=== PATIENT | female | born 1950 | race Caucasian/White ===

== ENCOUNTER → 2016-11-05 08:28 | Outpatient (CLI) | payer MEDICARE, OTHER ==
[2014-05-26 14:28] VITALS: BMI 34.0
[~2016-11-05 08:28] MED LIST: ADVAIR 100/501 DISK INH; AEROBID-M AEROSO7 GM INH; ARTHROTEC EC 71 EACH PO; CALCIUM 600+D T1 TA1 PO; DEXILANT60 MG PO; EVISTA60 MG PO; LEXAPRO10 MG PO; MAXZIDE-25 MG T1 TAB PO; PEPCID40 MG PO; POTASSIUM99 M1 PO; SINGULAIR10 MG PO; ULTRAM50 MG PO; VENTOLIN HFA18 GM INH; VITAMIN D250000 UNIT PO; VITAMIN D31000 UNIT PO; VOLTAREN100 GM TP; ZETIA10 MG PO; [UNRECOGNIZED DRUG - REMARK]
[2016-11-05 10:00] LABS: ALBUMIN 4.1 g/dL (3.4-5.0); BILIRUBIN - DIRECT 0.14 mg/dL (0.00-0.30); BILIRUBIN - INDIRECT 0.46 mg/dL (0.00-1.00); BILIRUBIN - TOTAL 0.6 mg/dL (0.2-1.3); PROTEIN - SERUM 6.8 g/dL (6.4-8.2)
== END | disposition home or self-care (01) ==
LOC: D.LAB 10-26 08:30 → D.US 10-26 08:30
PROVIDERS: Internal Medicine Gastroenterology
DX: K76.0 Fatty (change of) liver, not elsewhere classified (principal)

== ENCOUNTER → 2017-05-06 08:22 | Outpatient (CLI) | payer MEDICARE, OTHER ==
[2014-05-26 14:28] VITALS: BMI 34.0
[2017-05-06 09:27] LABS: ALBUMIN 3.5 g/dL (3.4-5.0); BILIRUBIN - DIRECT 0.12 mg/dL (0.00-0.30); BILIRUBIN - INDIRECT 0.37 mg/dL (0.00-1.00); BILIRUBIN - TOTAL 0.49 mg/dL (0.2-1.3); PROTEIN - SERUM 6.7 g/dL (6.4-8.2)
== END | disposition home or self-care (01) ==
LOC: D.US 08:22
PROVIDERS: Internal Medicine Gastroenterology
DX: K76.0 Fatty (change of) liver, not elsewhere classified (principal)

== ENCOUNTER → 2017-07-09 10:18 | Outpatient (CLI) | payer MEDICARE, OTHER ==
[2014-05-26 14:28] VITALS: BMI 34.0
== END | disposition home or self-care (01) ==
LOC: D.MAMMO 10:18
DX: Z12.31 Encounter for screening mammogram for malignant neoplasm of breast (principal)

== ENCOUNTER → 2017-11-06 08:47 | Outpatient (CLI) | payer MEDICARE, OTHER ==
[2014-05-26 14:28] VITALS: BMI 34.0
[2017-11-06 10:31] LABS: ALBUMIN 3.9 g/dL (3.4-5.0); BILIRUBIN - DIRECT 0.12 mg/dL (0.00-0.30); BILIRUBIN - INDIRECT 0.48 mg/dL (0.00-1.00); BILIRUBIN - TOTAL 0.6 mg/dL (0.2-1.3); PROTEIN - SERUM 6.8 g/dL (6.4-8.2)
== END | disposition home or self-care (01) ==
LOC: D.US 08:47
PROVIDERS: Internal Medicine Gastroenterology
DX: K76.0 Fatty (change of) liver, not elsewhere classified (principal)

== ENCOUNTER → 2017-11-14 07:29 | Outpatient (CLI) | payer MEDICARE, OTHER ==
[2014-05-26 14:28] VITALS: BMI 34.0
== END | disposition home or self-care (01) ==
LOC: D.MRI 07:29
DX: K76.9 Liver disease, unspecified (principal)

== ENCOUNTER → 2018-04-30 08:03 | Outpatient (CLI) | payer MEDICARE, OTHER ==
[2014-05-26 14:28] VITALS: BMI 34.0
[2018-04-30 09:43] LABS: BILIRUBIN - DIRECT 0.16 mg/dL (0.00-0.30); BILIRUBIN - INDIRECT 0.66 mg/dL (0.00-1.00); BILIRUBIN - TOTAL 0.82 mg/dL (0.2-1.3); PROTEIN - SERUM 7.6 g/dL (6.4-8.2)
== END | disposition home or self-care (01) ==
LOC: D.US 08:00
PROVIDERS: Internal Medicine Gastroenterology
DX: K76.0 Fatty (change of) liver, not elsewhere classified (principal)

== ENCOUNTER → 2018-07-09 11:57 | Outpatient (CLI) | payer MEDICARE, OTHER ==
[2014-05-26 14:28] VITALS: BMI 34.0
[2018-07-10 15:24] LABS: HEPATITIS C ANTIBODY <0.1 (0.0-0.9)
== END | disposition home or self-care (01) ==
LOC: D.LAB 11:57
PROVIDERS: Internal Medicine Gastroenterology
DX: K76.0 Fatty (change of) liver, not elsewhere classified (principal); K21.9 Gastro-esophageal reflux disease without esophagitis; K58.0 Irritable bowel syndrome with diarrhea; R10.9 Unspecified abdominal pain

== ENCOUNTER → 2018-11-03 09:02 | Outpatient (CLI) | payer MEDICARE, OTHER ==
[2014-05-26 14:28] VITALS: BMI 34.0
[2018-11-03 10:27] LABS: ALBUMIN 3.7 g/dL (3.4-5.0); BILIRUBIN - DIRECT 0.14 mg/dL (0.00-0.30); BILIRUBIN - INDIRECT 0.48 mg/dL (0.00-1.00); BILIRUBIN - TOTAL 0.62 mg/dL (0.2-1.3); PROTEIN - SERUM 6.8 g/dL (6.4-8.2)
== END | disposition home or self-care (01) ==
LOC: D.US 09:00
PROVIDERS: Internal Medicine Gastroenterology
DX: K76.0 Fatty (change of) liver, not elsewhere classified (principal)

== ENCOUNTER 2019-03-26 19:00 | Outpatient (CLI) | payer MEDICARE, OTHER ==
[2014-05-26 14:28] VITALS: BMI 34.0
== END 2019-03-26 23:59 | disposition home or self-care (01) ==
LOC: D.MAMMO 19:00
PROVIDERS: ATTEND Family Medicine
DX: Z12.31 Encounter for screening mammogram for malignant neoplasm of breast (principal)

== ENCOUNTER → 2019-04-06 07:41 | Outpatient (CLI) | payer MEDICARE, OTHER ==
[2014-05-26 14:28] VITALS: BMI 34.0
[2019-04-06 08:37] LABS: BILIRUBIN - DIRECT 0.19 mg/dL (0.00-0.30); BILIRUBIN - INDIRECT 0.69 mg/dL (0.00-1.00); BILIRUBIN - TOTAL 0.88 mg/dL (0.2-1.3); PROTEIN - SERUM 7.1 g/dL (6.4-8.2)
== END | disposition home or self-care (01) ==
LOC: D.US 07:41
PROVIDERS: ATTEND Internal Medicine Gastroenterology
DX: K76.0 Fatty (change of) liver, not elsewhere classified (principal)

== ENCOUNTER → 2019-10-19 07:31 | Outpatient (CLI) | payer MEDICARE, OTHER ==
[2014-05-26 14:28] VITALS: BMI 34.0
[2019-10-19 08:34] LABS: ALBUMIN 4.1 g/dL (3.4-5.0); BILIRUBIN - DIRECT 0.11 mg/dL (0.00-0.30); BILIRUBIN - INDIRECT 0.3 mg/dL (0.00-1.00); BILIRUBIN - TOTAL 0.41 mg/dL (0.2-1.3); PROTEIN - SERUM 7.6 g/dL (6.4-8.2)
== END | disposition home or self-care (01) ==
LOC: D.US 07:31
PROVIDERS: ATTEND Internal Medicine Gastroenterology
DX: K76.0 Fatty (change of) liver, not elsewhere classified (principal)

== ENCOUNTER → 2020-04-18 08:15 | Outpatient (CLI) | payer MEDICARE, OTHER ==
[2014-05-26 14:28] VITALS: BMI 34.0
[2020-04-18 08:54] LABS: ALBUMIN 3.8 g/dL (3.4-5.0); BILIRUBIN - DIRECT 0.18 mg/dL (0.00-0.30); BILIRUBIN - INDIRECT 0.63 mg/dL (0.00-1.00); BILIRUBIN - TOTAL 0.81 mg/dL (0.2-1.3); PROTEIN - SERUM 6.9 g/dL (6.4-8.2)
== END | disposition home or self-care (01) ==
LOC: D.LAB 08:00 → D.US 08:30
PROVIDERS: ATTEND Internal Medicine Gastroenterology
DX: K76.0 Fatty (change of) liver, not elsewhere classified (principal)

== ENCOUNTER → 2021-03-07 07:41 | Outpatient (CLI) | payer MEDICARE, OTHER ==
[2014-05-26 14:28] VITALS: BMI 34.0
[2021-03-07 08:21] LABS: ALBUMIN 3.9 g/dL (3.4-5.0); BILIRUBIN - DIRECT 0.14 mg/dL (0.00-0.30); BILIRUBIN - INDIRECT 0.41 mg/dL (0.00-1.00); BILIRUBIN - TOTAL 0.55 mg/dL (0.2-1.3)
== END | disposition home or self-care (01) ==
LOC: D.US 07:41
PROVIDERS: ATTEND Internal Medicine Gastroenterology
DX: K76.0 Fatty (change of) liver, not elsewhere classified (principal)